=== PATIENT | male | born 1980 | race Caucasian/White ===

== ENCOUNTER 2019-03-20 08:11 | Emergency (ER) | payer BC, OTHER ==
[2019-03-20 08:32] VITALS: BP 108/61
--- NOTE | 2019-03-20 08:48 | UC ---
Skin Complaint HPI - HPI Summary HPI Summary: boil left hip x 4 days + redness, swelling, tenderness, no discharge, no fever , no chills was seen at the ED 4 days ago , was placed on Clinda, now having few small abscess on his left axilla as well, ED did not culture the wound - History of Current Complaint Chief Complaint: UCSkin Time Seen by Provider: 03/20/19 08:27 Stated Complaint: SKIN CONCERN Hx Obtained From: Patient Onset/Duration: Gradual Onset, Lasting Days - 4, Still Present Timing: Constant Onset Severity: Moderate Current Severity: Moderate Pain Intensity: 1 Location: Discrete - left hip / left axilla Character: Swelling, Pain, Redness, Raised, Painful Aggravating Factor(s): Touch Alleviating Factor(s): Nothing Associated Signs & Symptoms: Positive: Tenderness. Negative: Nausea, Vomiting, Fever, Chills, Red Streaks - Allergy/Home Medications Allergies/Adverse Reactions: Allergies Allergy/AdvReac Type Severity Reaction Status Date / Time Penicillins Allergy Unknown Verified 03/20/19 08:28 Reaction Details Home Medications: Home Medications Clindamycin Cap(NF) [Clindamycin Cap 300 mg Cap(NF)] 300 mg PO Q6H 03/20/19 [ History Confirmed 03/20/19] Dm/Acetaminophen/Doxylamine [Vicks Nyquil Cold & Flu N 15-6.25-325 mg] 1 cap PO ONCE 03/20/19 [History Confirmed 03/20/19] Naproxen Sodium [Aleve] 220 mg PO Q12H PRN 03/20/19 [History Confirmed 03/20/19] PMH/Surg Hx/FS Hx/Imm Hx Previously Healthy: Yes - Surgical History Surgical History: None - Family History Known Family History: Negative: Diabetes - Social History Alcohol Use: Occasionally Substance Use Type: None Smoking Status (MU): Former Smoker Length of Time of Smoking/Using Tobacco: 11/12 PPD x 10 Years Review of Systems All Other Systems Reviewed And Are Negative: Yes Constitutional: Positive: Negative. Negative: Fever, Chills, Fatigue Eyes: Positive: Negative ENT: Positive: Negative Respiratory: Positive: Negative Is Patient Immunocompromised?: No Physical Exam Triage Information Reviewed: Yes Appearance: Well-Appearing, No Pain Distress, Well-Nourished Vital Signs: Initial Vital Signs Temp 97.7 F 03/20/19 08:24 Pulse 62 03/20/19 08:24 Resp 18 03/20/19 08:24 BP 108/61 03/20/19 08:24 Pulse Ox 97 03/20/19 08:24 Vital Signs Reviewed: Yes Eye Exam: Normal Eyes: Positive: Conjunctiva Clear ENT: Positive: Normal ENT inspection, Hearing grossly normal, Pharynx normal Neck: Positive: Supple, Nontender, No Lymphadenopathy Respiratory: Positive: Chest non-tender, Lungs clear, Normal breath sounds Cardiovascular: Positive: RRR, No Murmur, Pulses Normal Skin: Positive: Other - abscess left hip , + swelling , erythema , tender to touch, 2 small abscesses left axilla Course/Dx - Diagnoses Provider Diagnosis: Abscess of left hip Discharge - Sign-Out/Discharge Documenting (check all that apply): Patient Departure All imaging exams completed and their final reports reviewed: No Studies - Discharge Plan Condition: Stable Disposition: HOME Patient Education Materials: Abscess (ED) Referrals: Ashely Hinson PA [Primary Care Provider] - 5 Days Additional Instructions: use moist warm compresses cont. with Clinda Take Tylenol as needed for pain follow up with your pcp in 5 to 7 days please call the office in 2 days for the wound culture results - Billing Disposition and Condition Condition: STABLE Disposition: Home
--- NOTE | 2019-03-20 16:57 | ED ---
Progress - Progress Note Progress Note: s aureus positive. Already on clinda. No change. MRSA negative Course/Dx - Diagnoses Provider Diagnoses: Abscess of left hip Discharge - Sign-Out/Discharge Documenting (check all that apply): Patient Departure All imaging exams completed and their final reports reviewed: No Studies - Discharge Plan Condition: Stable Disposition: HOME Patient Education Materials: Abscess (ED) Referrals: Ashely Hinson PA [Primary Care Provider] - 5 Days Additional Instructions: use moist warm compresses cont. with Clinda Take Tylenol as needed for pain follow up with your pcp in 5 to 7 days please call the office in 2 days for the wound culture results - Billing Disposition and Condition Condition: STABLE Disposition: Home
--- NOTE | 2019-03-22 16:33 | UC ---
- Progress Note Progress Note: patient call and stated his infection was not improving reviewed sensitivities and his staph is resistant to clinda state he had a rash with AMOX as a 4 yo keflex 500 QID eRXed patient advised to return for worsening symptoms or if not improved in 48 hours Course/Dx - Diagnoses Provider Diagnoses: Abscess of left hip Discharge - Sign-Out/Discharge Documenting (check all that apply): Post-Discharge Follow Up All imaging exams completed and their final reports reviewed: No Studies - Discharge Plan Condition: Stable Disposition: HOME Prescriptions: Cephalexin CAP* [Keflex CAP*] 500 mg PO QID #28 cap Patient Education Materials: Abscess (ED) Referrals: Ashely Hinson PA [Primary Care Provider] - 5 Days Additional Instructions: use moist warm compresses cont. with Clinda Take Tylenol as needed for pain follow up with your pcp in 5 to 7 days please call the office in 2 days for the wound culture results - Billing Disposition and Condition Condition: STABLE Disposition: Home
== END 2019-03-20 08:50 | disposition home or self-care (01) ==
LOC: UCCORT 08:11
DX: L02.416 Cutaneous abscess of left lower limb (principal); A49.01 Methicillin susceptible Staphylococcus aureus infection, unspecified site; Z87.891 Personal history of nicotine dependence; Z88.0 Allergy status to penicillin
CPT/HCPCS: 87070; 87077; 87186; 87205; 87640; 87641; 99211; G0463

== ENCOUNTER 2019-03-23 14:29 | Emergency (ER) | payer BC ==
[2019-03-23 15:27] VITALS: BP 141/86
--- NOTE | 2019-03-23 15:42 | UC ---
Skin Complaint HPI - HPI Summary HPI Summary: Per general internal medicine physician: "Left hip abscess for one week. Initially started on clyndamycin at [facility] ED (no culture). Pustules then in left axilla. Here two days ago and culture obtained. Culutre results showed fawn chowdhury resistent to clindamycin and switched to cephalexin yesterday. New pustules in both axillas. Continued general malaise. Intermittent dizziness for one day. Chest pain that waxes and wanes in severity worsening since last night. Moderately aggrevated by exertion. Intermittent radiation to left hand. Denies fever/chills. Denies cardiac history." -grew signifcantly last night. started draining last night -was seen at [facility] last week. -tired. -denies IV drug use, no dental abscess/procedures recently. no interaction w/ animals -initially thought ? spider bite Chest pain started last night. both sharp and dull at times. sharp pain only lasts for a few seconds. dull pain/numbing lasts a few minutes. +off balance dizziness -supposed to go to [facility] in 2 days - recommended against. -abscess is now worse and now w/ 6 modules left axilla, 3 in right axilla. - History of Current Complaint Chief Complaint: UCSkin Time Seen by Provider: 03/23/19 15:31 Stated Complaint: RECHECK-SKIN COMPLAINT,FEELING ILL Pain Intensity: 3 - Allergy/Home Medications Allergies/Adverse Reactions: Allergies Allergy/AdvReac Type Severity Reaction Status Date / Time Penicillins Allergy Unknown Verified 03/23/19 15:27 Reaction Details PMH/Surg Hx/FS Hx/Imm Hx Previously Healthy: Yes - Surgical History Surgical History: None - Family History Known Family History: Negative: Diabetes - Social History Alcohol Use: Occasionally Substance Use Type: None Smoking Status (MU): Former Smoker Length of Time of Smoking/Using Tobacco: 11/12 PPD x 10 Years Review of Systems All Other Systems Reviewed And Are Negative: Yes Constitutional: Positive: Chills, Fatigue Skin: Positive: Other - see above Eyes: Positive: Negative ENT: Positive: Negative Respiratory: Positive: Shortness Of Breath Cardiovascular: Positive: Chest Pain Gastrointestinal: Positive: Negative Genitourinary: Positive: Negative Motor: Positive: Negative Neurovascular: Positive: Negative Musculoskeletal: Positive: Negative Neurological: Positive: Negative Psychological: Positive: Negative Is Patient Immunocompromised?: No Physical Exam Triage Information Reviewed: Yes Appearance: Well-Appearing, Well-Nourished Vital Signs: Initial Vital Signs Temp 98.2 F 03/23/19 15:13 Pulse 86 03/23/19 15:13 Resp 16 03/23/19 15:13 BP 141/86 03/23/19 15:13 Pulse Ox 100 03/23/19 15:13 Vital Signs Reviewed: Yes Eye Exam: Normal ENT Exam: Normal ENT: Positive: Pharynx normal Dental Exam: Normal Neck exam: Normal Neck: Positive: Supple, Nontender, No Lymphadenopathy Respiratory Exam: Normal Respiratory: Positive: Lungs clear, Normal breath sounds, No respiratory distress, No accessory muscle use. Negative: Crackles, Rhonchi, Stridor, Wheezing Cardiovascular Exam: Normal Cardiovascular: Positive: RRR, No Murmur, Pulses Normal Abdominal Exam: Normal Abdomen Description: Positive: Nontender, Soft Neurological Exam: Normal Psychological Exam: Normal Skin: Positive: Other - left lateral hip w/ > 1 quarter sized large abscess w/ purulent dc. baseball sized surrounding dark erythema warm to touch, no streaks. 6 pustules, larhgest dime sized in left axilla. 3 smaller pustule right axilla. Course/Dx - Course Course Of Treatment: 38 yr old w/ left hoip abscess worsening despite treatment w/ keflex. there was resistance to initial clindamycin. now w/ systemic symptoms, chest pain and new pustules b/l axilla. Discussed improtance of labs w/ stat results, possible blood cx. ? systemic infection d/t endocarditis (no h/o IV drug use). -may need ID consult and will need I&D. cx showed s aureus positive, MRSA negative. -recommend AGAINST going to [facility] in 2 days b/c nature of progression of illness. - Differential Diagnoses - Skin Complaint Differential Diagnoses: Abscess, Cellulitis - Diagnoses Provider Diagnosis: Abscess Discharge - Sign-Out/Discharge Documenting (check all that apply): Patient Departure All imaging exams completed and their final reports reviewed: No Studies - Discharge Plan Condition: Good Disposition: HOME-RECOMMEND TO ED Referrals: sAhely Hinson PA [Primary Care Provider] - Additional Instructions: Make sure to go directly to the [facility] ER from here. We talked about the importance of blood work, blood cultures, probable further work up and IV antibiotcs. - Billing Disposition and Condition Condition: GOOD Disposition: Home-Recommend to ED
== END 2019-03-23 15:59 | disposition home health service (06) ==
LOC: UCCORT 14:29
DX: L02.416 Cutaneous abscess of left lower limb (principal); Z87.891 Personal history of nicotine dependence; Z88.0 Allergy status to penicillin
CPT/HCPCS: 93005; 99212; G0463

== ENCOUNTER 2019-03-23 17:28 | Emergency (ER) | payer BC ==
[2019-03-23 19:27] LABS: ABS Eosinophils 0.1 10^3/ul (0-0.6); ABS Lymphocytes 1.9 10^3/ul (1.0-4.8); ABS Monocytes 0.4 10^3/ul (0-0.8); ABS Neutrophils 8.2 10^3/ul (1.5-7.7); Eosinophil % 1.4 %; Hematocrit 46 % (42-52); Lymphocyte % 18.1 %; Mean Corpuscular HGB Conc 35 g/dL (31-36); Mean Corpuscular Hemoglobin 29 pg (27-31); Mean Corpuscular Volume 83 fL (80-94); Platelet Count 304 10^3/uL (150-450); Red Cell Distribution Width 13 % (10.5-15); White Blood Count 10.6 10^3/uL (3.5-10.8)
--- NOTE | 2019-03-23 20:33 | ED ---
Skin Complaint - HPI Summary HPI Summary: 38 yo male presents to [facility] ED with left hip and left axilla skin abscess. He also mentions that earlier today he developed some left sided chest pain that is intermittently stabbing in nature, but feels like an ache. He went to Urgent Care earlier today and was referred to ED over the concern for sepsis given spreading infection and for his chest pain. He denies hx of MRSA. He went to a few days ago for his left hip abscess and was placed on clindamycin and a wound culture was done that grew out staph resistant to clindamycin. He was then switched to Keflex, which he started last night. He denies fever, chills, SOB, palpitations, LOZADA, abdominal pain, n/v. He has no PMHx and denies family hx of cardiovascular disease. - History of Current Complaint Chief Complaint: EDRashSkinAbscess Time Seen by Provider: 03/23/19 20:33 Stated Complaint: POSS ABSCESS/NEED BLOODWORK PER PT Hx Obtained From: Patient Onset Severity: Mild Current Severity: Mild Pain Intensity: 4 Pain Scale Used: 0-10 Numeric - Allergy/Home Medications Allergies/Adverse Reactions: Allergies Allergy/AdvReac Type Severity Reaction Status Date / Time Penicillins Allergy Unknown Verified 03/23/19 17:40 Reaction Details PMH/Surg Hx/FS Hx/Imm Hx Endocrine/Hematology History: Denies: Hx Anemia Cardiovascular History: Denies: Hx Atrial Fibrillation, Hx Cardiac Arrest, Hx Hypotension, Hx Hypertension, Hx Myocardial Infarction, Hx Syncope Respiratory History: Denies: Hx Asthma Neurological History: Denies: Hx CVA Psychiatric History: Denies: Hx Anxiety Infectious Disease History: No Infectious Disease History: Denies: Traveled Outside the [place] in Last 30 Days - Family History Known Family History: Negative: Diabetes - Social History Alcohol Use: Occasionally Substance Use Type: Reports: None Smoking Status (MU): Former Smoker Length of Time of Smoking/Using Tobacco: 11/12 PPD x 10 Years Review of Systems Constitutional: Negative Eyes: Negative ENT: Negative Positive: Chest Pain Respiratory: Negative Gastrointestinal: Negative Genitourinary: Negative Musculoskeletal: Negative Positive: Other - Left hip and left axilla abscess Neurological: Negative Psychological: Normal All Other Systems Reviewed And Are Negative: Yes Physical Exam - Summary Physical Exam Summary: GENERAL: NAD. WDWN. No pain distress. SKIN: Left axilla: Two 1.0cm abscesses mildly TTP. Left hip with 2.5cm abscess with spontaneous yellow drainage and surrounding erythema. Mild TTP. No streaking or warmth. NECK: Supple. Nontender. No lymphadenopathy. CHEST: CTAB. No r/r/w. No accessory muscle use. Breathing comfortably and in no distress. CV: RRR. Without m/r/g. Pulses intact. Cap refill <2seconds ABDOMEN: Soft. NTTP. No distention or guarding. No CVA tenderness. Bowel sounds present NEURO: Alert. PSYCH: Age appropriate behavior. Triage Information Reviewed: Yes Vital Signs On Initial Exam: Initial Vitals Temp Pulse Resp BP Pulse Ox 98.9 F 77 16 137/84 96 03/23/19 17:36 03/23/19 17:36 03/23/19 17:36 03/23/19 17:36 03/23/19 17:36 Vital Signs Reviewed: Yes Procedures - Incision and Drainage Left Axilla Anesthesia: Local, Lidocaine Instrument(s): Scalpel - #11 Packing: Other - None Left Hip Anesthesia: Local, Lidocaine Instrument(s): Scalpel - #11 Packing: Other - None Diagnostics - Vital Signs Vital Signs Temp Pulse Resp BP Pulse Ox 03/23/19 19:32 98.5 F 89 12 113/76 97 03/23/19 17:36 98.9 F 77 16 137/84 96 - Laboratory Lab Results: Lab Results 03/23/19 Range/Units 19:20 WBC 10.6 (3.5-10.8) 10^3/uL RBC 5.60 H (4.18-5.48) 10^6 /uL Hgb 16.0 (14.0-18.0) g/dL Hct 46 (42-52) % MCV 83 (80-94) fL MCH 29 (27-31) pg MCHC 35 (31-36) g/dL RDW 13 (10.5-15) % Plt Count 304 (150-450) 10^3/uL MPV 7.0 L (7.4-10.4) fL Neut % (Auto) 76.8 % Lymph % (Auto) 18.1 % [place] % (Auto) 3.4 % Eos % (Auto) 1.4 % Baso % (Auto) 0.3 % Absolute Neuts (auto) 8.2 H (1.5-7.7) 10^3/ul Absolute Lymphs (auto) 1.9 (1.0-4.8) 10^3/ul Absolute Monos (auto) 0.4 (0-0.8) 10^3/ul Absolute Eos (auto) 0.1 (0-0.6) 10^3/ul Absolute Basos (auto) 0.0 (0-0.2) 10^3/ul Absolute Nucleated RBC 0.0 10^3/ul Nucleated RBC % 0.0 Laboratory Tests 03/23/19 03/23/19 03/23/19 19:20 21:16 21:16 WBC 10.6 RBC 5.60 H Hgb 16.0 Hct 46 MCV 83 MCH 29 MCHC 35 RDW 13 Plt Count 304 MPV 7.0 L Neut % (Auto) 76.8 Lymph % (Auto) 18.1 [place] % (Auto) 3.4 Eos % (Auto) 1.4 Baso % (Auto) 0.3 Absolute Neuts (auto) 8.2 H Absolute Lymphs (auto) 1.9 Absolute Monos (auto) 0.4 Absolute Eos (auto) 0.1 Absolute Basos (auto) 0.0 Absolute Nucleated RBC 0.0 Nucleated RBC % 0.0 Sodium 139 Potassium 3.8 Chloride 102 Carbon Dioxide 29 Anion Gap 8 BUN 11 Creatinine 0.95 Est GFR ( Amer) 106.8 Est GFR (Non-Af Amer) 88.3 BUN/Creatinine Ratio 11.6 Glucose 129 H Lactic Acid 1.2 Calcium 9.5 Total Bilirubin 0.40 AST 27 ALT 31 Alkaline Phosphatase 85 Troponin I 0.00 Total Protein 7.4 Albumin 4.2 Globulin 3.2 Albumin/Globulin Ratio 1.3 Result Diagrams: 03/23/19 19:20 03/23/19 21:16 Lab Statement: Any lab studies that have been ordered have been reviewed, and results considered in the medical decision making process. Course/Dx - Course Course Of Treatment: EKG: NSR 75bpm ST elevation normal repol as read by Dr. Catherine. Left axilla abscess: The procedure was explained to the pt and all questions were answered. A time out was performed, witnessed, and signed. The area was cleansed with an alcohol pad. 1mL of 2% lidocaine without epi was administered and good anesthetization was achieved. A #11 blade was used to make a 4mm vertical incision at the central most part of the abscess. Yellow purulent matter was able to be expressed. Pt tolerated well. Hemostasis was achieved and area bandaged with gauze. Left hip abscess: The procedure was explained to the pt and all questions were answered. A time out was performed, witnessed, and signed. The area was cleansed with an alcohol pad. 2mL of 2% lidocaine without epi was administered and good anesthetization was achieved. A #11 blade was used to make a 5mm vertical incision at the central most part of the abscess. Yellow purulent matter was able to be expressed. Pt tolerated well. Hemostasis was achieved and area bandaged with gauze. Pt's CXR, EKG, and labs are WNL and he is afebrile without signs of sepsis or systemic infection. Regarding his chest pain, his HEART score is 0, and initial cardiac workup was normal. I suspect his left chest pain could be due to the left axilla abscesses and may improve s/p I&D and continuation of keflex. Will be discharged with dx of left axilla and left hip abscess. Advised to continue keflex and be rechecked in 2-3 days for a wound check. Return to ED for fever, chills, streaking, increased pain/redness/swelling to abscess sites, or if chest pain symptoms worsen. - Diagnoses Provider Diagnoses: Abscess of left axilla, Abscess of left hip, Chest pain Discharge - Sign-Out/Discharge Documenting (check all that apply): Patient Departure Patient Received Moderate/Deep Sedation with Procedure: No - Discharge Plan Condition: Stable Disposition: HOME Patient Education Materials: Abscess (ED) Referrals: Ashely Hinson PA [Primary Care Provider] - Additional Instructions: If you develop a fever, shortness of breath, chest pain, new or worsening symptoms - please call your PCP or go to the ED immediately. The work up for your chest pain was normal. Please continue taking your antibiotic as prescribed (keflex) for your abscess. Please change the bandage daily until well healed. I recommend you be rechecked in 3 days for a wound check to your left hip to insure proper healing. - Billing Disposition and Condition Condition: STABLE Disposition: Home
[2019-03-23] MEDS ORDERED: Lidocaine 2% PF * 5 ML VIAL INJ ONE (20:42)
[2019-03-23] MEDS ORDERED: Lidocaine 2% MPF* 2 ML VIAL ONE (20:58)
[2019-03-23 21:40] LABS: Albumin 4.2 g/dL (3.2-5.2); Albumin/Globulin Ratio 1.3 (1-3); BUN/Creatinine Ratio 11.6 (8-20); Calcium 9.5 mg/dL (8.6-10.3); EGFR African American 106.8 (>60); EGFR Non-African American 88.3 (>60); Globulin 3.2 g/dL (2-4); Potassium 3.8 mmol/L (3.5-5.0); Total Bilirubin 0.4 mg/dL (0.2-1.0); Total Protein 7.4 g/dL (6.4-8.9)
[2019-03-23 22:15] VITALS: BP 121/76
== END 2019-03-23 22:14 | disposition home or self-care (01) ==
LOC: ED 17:28
DX: L02.416 Cutaneous abscess of left lower limb (principal); L02.412 Cutaneous abscess of left axilla; R07.89 Other chest pain; Z88.0 Allergy status to penicillin; Z87.891 Personal history of nicotine dependence
CPT/HCPCS: 10060; 36415; 71045; 80053; 83605; 84484; 85025; 93005; 99282